=== PATIENT | male | born 1965 | race Two or more races ===

== ENCOUNTER 2021-01-31 10:35 | Emergency (ER) | payer MEDICAID ==
[~2021-01-31] VITALS: Ht 172.7 cm; Wt 94.8 kg
[2021-01-31] MEDS ORDERED: cloNIDine HCL 0.1 MG TAB PO ONE (12:15)
[2021-01-31 13:18] VITALS: BP 156/93
== END 2021-01-31 13:55 | disposition home or self-care (01) ==
LOC: ER 10:35
DX: U07.1 COVID-19 (principal); J12.82 Pneumonia due to coronavirus disease 2019; I10 Essential (primary) hypertension
CPT/HCPCS: 36415; 71045; 87426

== ENCOUNTER 2022-06-10 09:10 | Emergency (ER) | payer MEDICAID ==
[~2022-06-10] VITALS: Ht 170.2 cm; Wt 95.7 kg
[2022-06-10 09:52] VITALS: BP 180/79
[2022-06-10] MEDS ORDERED: IBUP800T27 PO (10:32)
== END 2022-06-10 10:42 | disposition home or self-care (01) ==
LOC: ER 09:10
DX: S83.91XA Sprain of unspecified site of right knee, initial encounter (principal); I10 Essential (primary) hypertension; W18.39XA Other fall on same level, initial encounter; Y93.89 Activity, other specified; Y92.89 Other specified places as the place of occurrence of the external cause; Y99.8 Other external cause status
CPT/HCPCS: 73562